=== PATIENT | female | born 1955 | race Hispanic/Latino ===

== ENCOUNTER → 2018-11-16 | Day surgery (SDC) | payer OTHER ==
[2018-11-15 09:38] LABS: BASOPHILS # (AUTO) 0.1 (0.0-0.1); EOSINOPHILS # (AUTO) 0.3 (0.0-0.4); EOSINOPHILS % 4.3 % (0.0-6.0); HEMATOCRIT 37.8 % (34.2-44.1); LYMPHOCYTES # (AUTO) 2.6 (1.0-3.2); LYMPHOCYTES % 38.7 % (18.0-39.1); MEAN CORPUSCULAR HGB CONC 31.7 g/dL (31-35); MEAN CORPUSCULAR VOLUME 88.3 fL (81-99); MONOCYTES # (AUTO) 0.5 (0.2-0.8); MONOCYTES % 7.3 % (4.4-11.3); NEUTROPHILS # (AUTO) 3.2 (2.1-6.9); NEUTROPHILS % 47.5 % (38.7-80.0); PLATELET COUNT 351 x10e3/uL (140-360); RED BLOOD COUNT 4.28 x10e6/uL (3.6-5.1); RED CELL DISTRIBUTION WIDTH 13.2 % (11.7-14.4)
[2018-11-15 09:56] LABS: ANION GAP 13.9 mmol/L (8-16); BLOOD UREA NITROGEN 11 mg/dL (7-26); BUN/CREATININE RATIO 12 (6-25); CARBON DIOXIDE 29 mmol/L (22-29); CHLORIDE 98 mmol/L (98-107); EST GLOMERULAR FILTRATION RATE > 60 ML/MIN (60-); GLUCOSE 90 mg/dL (74-118); POTASSIUM 3.9 mmol/L (3.5-5.1); SODIUM 137 mmol/L (136-145)
--- NOTE | 2018-11-15 10:32 | Diagnostic Imaging Report ---
EXAM: XR CHEST 2 VIEWS DATE: 11/15/2018 9:19 AM INDICATION: Preoperative, pain urologic procedure COMPARISON: None FINDINGS: Lines and Tubes: None Heart and Mediastinum: Heart is upper limits of normal. Mild aortic vascular calcifications. Lungs and Pleura: Mild biapical scarring. Ill-defined opacities in the lung bases. Circular density right lung base, nonspecific. Bones and Soft Tissues: No acute findings. IMPRESSION: 1. Ill-defined opacities mid and lower lungs, with no comparisons available. Atelectasis, edema, infectious process, or chronic lung changes could have this appearance. Circular density in the right lung base may represent confluence of vascular structures; however, other etiology possible. CT chest recommended. Signed by: Dr. Alexis Gonsales MD on 11/15/2018 10:29 AM
[~2018-11-16] MED LIST: ACIPHEX20 MG PO; ADVAIR 100-501 EACH INH; AMOXICILLIN250 MG PO; ARTHRITIS PAIN650 M3 PO; ARTIFICIAL TEAR15 ML OP; B12 INJ INJ; BELLADONNA/OPIUM 30 MG SUPP RC ONE; BENZONATATE100 MG PO; BOTULINUM TOXIN TYPE A 100 UNIT VIAL IM ONE; COMBIVENT14.7 GM INH; COPAXONE20 MG/KIT SC; CYANOCOBAL1000 MCG/M IM; DEXAMETHASONE SOD PHOS INJ 4 MG/ML VIAL ONE; DEXILANT60 MG; DICLOFENAC SOD2.5 ML; FENTANYL CITRATE/PF 100MCG/2 ML INJ ONE; FLECTOR1 EACH TP; FLUTICASONE PRO16 GM; GRALISE300 MG PO; GUAIFENESI100 MG/5 M PO; HYOSCYAMINE; IOPAMIDOL 610MG/1ML 300 MG/ML VIAL IV ONE; LEVOFLOXACIN 500MG/D5W 100ML 100 ML IV ONE; LEXAPRO5 MG PO; LIDOCAINE HCL 2% LOCAL INJ 5 ML SDV VIAL INJ ONE; LYRICA75 MG PO; MIDAZOLAM HCL 2 MG/2 ML VIAL ONE; MUCINEX600 MG PO; NORTRIPTYLINE H25 MG PO; ONDANSETRON HCL INJ 2MG/ML 2ML 2 MG/ML VIAL ONE; PROPOFOL IV EMULSION 10 MG/ML 20 ML VIAL ONE; RAPAFLO8 MG PO; RIVASTIGMINE1.5 MG TOP; SALINE NASAL SP45 ML; SEVOFLURANE INHAL SOLN 250 ML PEN BTL ONE; SUPHEDRINE PE10 MG PO; SYMBICORT 160-4.6 GM IH; VICODIN PO; VITAMIN D35000 UNIT PO; VOLTAREN100 GM TOP; Z FEOSOL PO; Z.0.LEVOTHYROXINE25 PO; Z.0.ONE-A-DAY WOME1; Z.0.RANITIDINE HCL30 PO; [UNRECOGNIZED DRUG - CODE] PO; [UNRECOGNIZED DRUG - OTHER] NS; [UNRECOGNIZED DRUG - OTHER] PO; [UNRECOGNIZED DRUG - OTHER] PO; lidocaine cream TOP
--- OUTSIDE RECORDS SUMMARY | 2018-11-16 05:29 | XMS REPORT | Clinical Summary ---
Author Author [facility]Min[facility] Hospital[facility] Address Unknown Phone Unavailable Care Team Providers Care Warehouse Analyst Name Role Phone Lester Gaitan PCP Unavailable Allergies Comments Active Allergy Reactions Severity Noted Date Cephalexin 08/11/2013 Cephalosporins Rash Low 07/15/2016 Darifenacin Hydrobromide 08/11/2013 Nitrofurantoin 08/11/2013 Macrocrystal MAKE HER HYPER Metoclopramide Hcl Other (See Medium 07/15/2016 Comments) Medications End Date Status Medication Sig Dispensed Refills Start Date Active escitalopram oxalate Take 5 mg by 0 (LEXAPRO) 5 MG tablet mouth daily. Active multivitamin per tablet Take 1 tablet 0 by mouth daily. Active betamethasone Apply 0 dipropionate (DIPROLENE) topically 2 0.05 % cream (two) times daily. Active albuterol-ipratropium Inhale 2 0 (COMBIVENT) 18-103 puffs by mcg/actuation inhaler mouth via inhaler every 6 (six) hours as needed for Wheezing. Active cyanocobalamin (VITAMIN Inject 1,000 0 B-12) 1,000 mcg/mL mcg injection intramuscular ly every 30 (thirty) days . Active fluticasone (VERAMYST) 2 sprays by 0 27.5 mcg/actuation nasal Nasal route spray daily. Active levothyroxine (SYNTHROID, Take 50 mcg 0 LEVOTHROID) 50 MCG tablet by mouth Every morning on an empty stomach. Active lidocaine (XYLOCAINE) 5 % Apply 0 ointment topically as needed. Active RABEprazole (ACIPHEX) 20 Take 20 mg by 0 mg EC tablet mouth daily. Active budesonide-formoterol Inhale 2 0 (SYMBICORT) 160-4.5 puffs by mcg/actuation inhaler mouth via inhaler 2 (two) times daily. Active dextran 70-hypromellose Place 1 drop 0 (ARTIFICIAL TEAR) into both ophthalmic solution eyes 2 (two) times daily. Active glatiramer (COPAXONE) 40 Inject 40 mg 0 mg/mL Syrg subcutaneousl y 3 (three) times a week. Active CALCIUM CARBONATE (TUMS Take by mouth 0 ORAL) as needed. Active cholecalciferol, vitamin Take 5,000 0 D3, (VITAMIN D3) 5,000 Units by unit Tab mouth daily. Active DICLOFENAC SODIUM Apply 0 (VOLTAREN TOP) topically. Active nortriptyline (PAMELOR) Take 10 mg by 0 10 MG capsule mouth nightly. Active fexofenadine HCl (MUCINEX Take by 0 ALLERGY ORAL) mouth. 10/06/2018 Discontinued silodosin (RAPAFLO) 8 mg Take by mouth 0 Cap daily. 10/06/2018 Discontinued sodium chloride 0.65% 1 spray by 0 (SODIUM CHLORIDE) 0.65 % Nasal route nasal spray as needed for Congestion. 10/06/2018 Discontinued dicyclomine (BENTYL) 10 Take 10 mg by 0 MG capsule mouth 3 (three) times daily. 10/06/2018 Discontinued ciprofloxacin HCl (CIPRO) Take 500 mg 0 500 MG tablet by mouth 2 (two) times daily. 10/06/2018 Discontinued pregabalin (LYRICA) 50 MG Take 50 mg by 0 capsule mouth 3 (three) times daily. Active Problems Not on file Encounters Care Team Description Date Type Specialty Yordan Perez 10/23/2018 Anesthesia Event Diana Zamudio MD UPPER ENDOSCOPY 10/23/2018 Surgery Diana Zamudio MD 10/23/2018 [facility] 10/06/2018 Hospital Pre-Admission Testing Encounter after 11/15/2017 Family History Medical History Relation Name Comments Cancer Father Cancer Mother Relation Name Status Comments Father Mother Social History Date Tobacco Use Types Packs/Day Years Used Never Smoker Smokeless Tobacco: Never Used Alcohol Use Drinks/Week oz/Week Comments No Sex Assigned at Date Recorded Not on file Industry Job Start Date Occupation Not on file Not on file Not on file Travel End Travel History Travel Start No recent travel history available. Last Filed Vital Signs Time Taken Vital Sign Reading 10/23/2018 10:35 AM [employer] Blood Pressure 116/68 10/23/2018 10:35 AM [employer] Pulse 72 10/23/2018 10:05 AM [employer] Temperature 36.6 C (97.8 F) 10/23/2018 10:35 AM [employer] Respiratory Rate 29 10/23/2018 10:35 AM [employer] Oxygen Saturation 94% - Inhaled Oxygen - Concentration 10/23/2018 7:27 AM [employer] Weight 82.1 kg (181 lb) 10/23/2018 7:27 AM [employer] Height 160 cm (5' 3") 10/23/2018 7:27 AM [employer] Body Mass Index 32.06 Plan of Treatment Not on file Procedures Comments Procedure Name Priority Date/Time Associated Diagnosis REPORT OF PROCEDURE - 10/23/2018 ENDOSCOPY URL 10:13 AM [employer] UPPER ENDOSCOPY 10/23/2018 Gastroesophageal reflux 8:00 AM [employer] disease, esophagitis presence not specified Other dysphagia Dyspepsia Achalasia after 11/15/2017 Results * REPORT OF PROCEDURE - ENDOSCOPY URL (10/23/2018 10:13 AM [employer]AL [employer]) Narrative Performed At after 11/15/2017 Insurance Payer Benefit Subscriber ID Type Phone Address Plan / Group AETNA - [employer] CARE AETNA HMO xxxxxxxxx HMO/POS POS QPOS
--- OUTSIDE RECORDS SUMMARY | 2018-11-16 05:29 | XMS REPORT | Summary of Care ---
Author Author [facility] [place] Organization [facility] [place] Address Unknown Phone Unavailable Encounter HQ Hayleer_jun(FIN) [id number] Date(s): 02/10/18 - 02/10/18 [facility] [place] [address] [place] [address] [phone] Encounter Diagnosis Multiple sclerosis (Final) - 02/15/18 Other amnesia (Final) - White matter disease, unspecified (Final) - Discharge Disposition: Home or Self Care Attending Physician: TuesdayRochelle MD Vital Signs No data available for this section Problem List Condition Effective Dates Status Health Status Informant Asthma(Confirmed) Active Bladder Resolved polyp(Confirmed)1 Bronchiectasis(Confi 2005 Active rmed) Dysphasia(Confirmed) Active 2 Fibromyalgia(Confirm Active ed) GERD - Active Gastro-esophageal reflux disease(Confirmed) Heel Active pain(Confirmed)3 Hypoglycemia(Confirm Active ed) MS - Multiple Resolved sclerosis(Confirmed) 4 Sleep Active apnea(Confirmed)5 Spondylosis(Confirme Active d) 1removed with cyto in 2Pt states she has had balloon dilation of esophagus for Achalasia 3Hx of heel spur right foot 4Diagnosed 2014, but states she has symptoms for years prior 5uses C PAP at home Allergies, Adverse Reactions, Alerts Substance Reaction Severity Status cephalosporins Active Reglan Active Medications No data available for this section Results No data available for this section Immunizations No data available for this section Procedures Procedure Date Related Diagnosis Body Site Status Knee replacement1 11/04/05 Completed Suspension of bladder 1998 Completed Hysterectomy1991 Completed Cystoscopy3 Completed Esophagogastroduodenoscopy4 Completed Tonsillectomy Completed 1Right knee 2Total hyst 3with removal of bladder polyps 4with achalasia balloon dilation Social History Social History Type Response Smoking Status Former smoker; Type: Cigarettes; Exposure to Tobacco Smoke None; Cigarette Smoking Last 365 Days No; Reg Smoking Cessation Counseling No; Started at age: 17.0; Stopped at age: 20; entered on: 02/25/16 Assessment and Plan No data available for this section
--- OUTSIDE RECORDS SUMMARY | 2018-11-16 05:29 | XMS REPORT | Summary of Care ---
Author Author [facility] [place] Organization [facility] [place] Address Unknown Phone Unavailable Encounter HQ Encntr_alias(FIN) [id number] Date(s): 08/06/15 - 08/06/15 [facility] [place] [address] [place], [place] [address] [place] [phone] Discharge Disposition: Home Attending Physician: TuesdayRochelle MD Vital Signs No data available for this section Problem List No data available for this section Allergies, Adverse Reactions, Alerts No data available for this section Medications No data available for this section Results No data available for this section Immunizations No data available for this section Procedures No data available for this section Social History No data available for this section Assessment and Plan No data available for this section
--- OUTSIDE RECORDS SUMMARY | 2018-11-16 05:29 | XMS REPORT | Summary of Care ---
Author Author [facility] Organization [facility] Address Unknown Phone Unavailable Encounter MIKE Lee(RODDY) [id number] Date(s): 08/27/15 - 08/27/15 [facility] [address] [place] [address]- Discharge Disposition: Home Attending Physician: TuesdayRochelle MD Referring Physician: TuesdayRochelle MD Vital Signs 1 2 3 Most recent to oldest [Reference Range]: 160.02 cm (08/27/15 8:27 AM) 160.02 cm (08/27/15 8:25 AM) 160.02 cm (08/27/15 8:24 AM) Height 1 2 3 Most recent to oldest [Reference Range]: 77.273 kg (08/27/15 8:27 AM) 77.273 kg (08/27/15 8:25 AM) 77.273 kg (08/27/15 8:24 AM) Weight 1 2 3 Most recent to oldest [Reference Range]: 30.18 m2 (08/27/15 8:27 AM) 30.18 m2 (08/27/15 8:25 AM) 30.18 m2 (08/27/15 8:24 AM) Body Mass Index Problem List No data available for this section Allergies, Adverse Reactions, Alerts No data available for this section Medications No data available for this section Results BODY FLUIDS Most recent to 1 oldest [Reference Range]: Glucose CSF [45-80 62 mg/dL mg/dL] (08/27/15 8:50 AM) Protein CSF [15-45 23 mg/dL mg/dL] (08/27/15 8:50 AM) Tube Num CSF 4 *NA* (08/27/15 8:50 AM) Color CSF Colorless [Colorless] (08/27/15 8:50 AM) Clarity CSF [Clear] Clear (08/27/15 8:50 AM) Supernat CSF Colorless [Colorless] (08/27/15 8:50 AM) RBC CSF [0-0 /mm3] 1 /mm3 *HI* (08/27/15 8:50 AM) WBC CSF [0-5 /mm3] 2 /mm3 (08/27/15 8:50 AM) IMMUNOLOGY Most recent to 1 oldest [Reference Range]: VDRL Scr CSF [Non Non Reactive Reactive] (08/27/15 8:50 AM) IgG Lvl CSF [2.0-4.0 1.3 mg/dL mg/dL] *LOW* (08/27/15 8:50 AM) IgG (CPE) [694-1618 1280 mg/dL mg/dL] (08/27/15 8:50 AM) Alb CSF (CPE) 9.9 mg/dL [14.0-25.0 mg/dL] *LOW* (08/27/15 8:50 AM) Alb (CPE) 4000.0 mg/dL [3400.0-5000.0 (08/27/15 8:50 AM) mg/dL] IgG Index [0.3-0.7 0.4 mg/dL mg/dL] (08/27/15 8:50 AM) Immunizations No data available for this section Procedures No data available for this section Social History No data available for this section Assessment and Plan No data available for this section
--- OUTSIDE RECORDS SUMMARY | 2018-11-16 05:29 | XMS REPORT | Summary of Care ---
Author Author [facility] Organization [facility] Address Unknown Phone Unavailable Encounter MIKE Lee(RODDY) [id number] Date(s): 02/25/16 - 02/26/16 [facility] [address] [place] [address]- Discharge Disposition: Home Attending Physician: Physician, Non Associated MD Referring Physician: Sg Jeffries MD Vital Signs Most recent to 1 oldest [Reference Range]: Height 160.02 cm (02/25/16 10:15 AM) Respiratory Rate 16 BRMIN [14-20 BRMIN] (02/25/16 10:19 AM) Weight 77.273 kg (02/25/16 10:15 AM) Body Mass Index 30.18 m2 (02/25/16 10:15 AM) Problem List Condition Effective Dates Status Health Status Informant Asthma(Confirmed) Active Bladder Resolved polyp(Confirmed)1 Bronchiectasis(Confi 2004 Active rmed) Dysphasia(Confirmed) Active 2 Fibromyalgia(Confirm Active [...] Severity Status cephalosporins Active Reglan Active Medications betamethasone TOP, ONCE, 0 Refill(s) Start Date: 02/25/16 Status: Ordered Combivent Respimat CFC free 100 mcg-20 mcg/inh inhalation aerosol 1 puff, INHALATION, PRN, 0 Refill(s) Start Date: 02/25/16 Status: Ordered Copaxone 40 mg/mL subcutaneous solution SUB-Q, Q-M-[id number], 0 Refill(s) Start Date: 02/25/16 Status: Ordered gabapentin 100 mg oral capsule 200 mg=2 cap, PO, Bedtime, 0 Refill(s) Start Date: 02/25/16 Status: Ordered Levothroid 25 mcg (0.025 mg) oral tablet 25 microgram=1 tab, PO, Daily, 0 Refill(s) Start Date: 02/25/16 Status: Ordered Multiple Vitamins oral tablet 1 tab, PO, Daily, 0 Refill(s) Start Date: 02/25/16 Status: Ordered RABEprazole 20 mg oral enteric coated tablet 20 mg=1 tab, PO, Daily, # 30 tab, 1 Refill(s) Start Date: 02/25/16 Stop Date: 03/26/16 Status: Ordered Symbicort 160/4.5 inhalation aerosol with adapter 2 puff, INHALATION, Daily, 0 Refill(s) Start Date: 02/25/16 Status: Ordered tamsulosin 0.4 mg oral capsule 0.4 mg=1 cap, PO, Daily, # 30 cap, 0 Refill(s) Start Date: 02/25/16 Status: Ordered Unknown Home Medication Refill(s) 0 Start Date: 02/25/16 Status: Ordered Vitamin B Complex injectable solution 2 mm, 0 Refill(s) Start Date: 02/25/16 Status: Ordered Vitamin D3 5000 intl units oral tablet 5,000 IntlUnit=1 tab, PO, Daily, 0 Refill(s) Start Date: 02/25/16 Status: Ordered Results No data available for this section Immunizations No data available for this section Procedures Procedure Date Related Diagnosis Body Site Knee replacement1 11/04/05 Suspension of bladder 1998 Hysterectomy2 1991 Cystoscopy3 Esophagogastroduodenoscopy4 Tonsillectomy 1Right knee 2Total hyst 3with removal of bladder polyps 4with achalasia balloon dilation Social History Social History Type Response Smoking Status Former smoker; Type: Cigarettes; Started at age: 17.0; Stopped at age: 20; Exposure to Tobacco Smoke None; Cigarette Smoking Last 365 Days No; Reg Smoking Cessation Counseling No Assessment and Plan No data available for this section
--- OUTSIDE RECORDS SUMMARY | 2018-11-16 05:29 | XMS REPORT ---
Author Author [facility] Address Unknown Phone Unavailable Care Team Providers Care Recreation Therapist Name Role Phone POLLY BAIRD Unavailable Unavailable Payers Payer Name Policy Type Policy Number Effective Date Expiration Date Problems This patient has no known problems. Allergies, Adverse Reactions, Alerts Allergy Name Allergy Type Status Severity Reaction(s) Onset Date Inactive Date Treating Clinician Comments Cephalosporins DA Active U 2016-02-24 00:00:00 metoclopramide HCl DA Active U 2013-08-11 00:00:00 Nitrofurantoin Macrocrystal DA Active U 2013-08-11 00:00:00 Darifenacin Hydrobromide DA Active U 2013-08-11 00:00:00 cephalexin DA Active MO 2013-08-11 00:00:00 nitrofurantoin DA Active U 2013-08-11 00:00:00 Medications This patient has no known medications. Results Test Description Test Time Test Comments Text Results Atomic Results Result Comments CHEST 2 VIEWS 2018-11-15 10:27:00 [place] [address] Patient Name: WEST MEJIA MR #: [id number] : 1955 Age/Sex: 63/F Req #: [id number] Adm Physician: Ordered by: POLLY BAIRD MD Report #: [id number] Location: OR Room/Bed: Procedure: [id number] DX/CHEST 2 VIEWS Exam Date: Exam Time: REPORT STATUS: Signed EXAM: XR CHEST 2 VIEWS DATE: 11/15/2018 9:19 AM INDICATION: Preop erative, pain urologic procedure COMPARISON: None FINDINGS: Lines and Tubes: None Heart and Mediastinum: Heart is upper limits of normal. Mild aortic vascular calcifications. Lungs and Pleura: Mild biapical scarring. Ill-defined opacities in the lung bases. Circular density right lung base, nonspecific. Bones and Soft Tissues: No acute findings. IMPRESSION: 1. Ill-defined opacities mid and lower lungs, with no comparisons available. Atelectasis, edema, infectious process, or chronic lung changes could have this appearance. Circular density in the right lung base may represent confluence of vascular structures; however, other etiology possible. CT chest recommended. Signed by: Dr. Alexis Gonsales MD on 11/15/2018 10:29 AM Dictated By: ALEXIS GONSALES MD [id number] Transcribed By: ALAN on 11/15/18 1029 COPY TO: POLLY BAIRD MD
--- OUTSIDE RECORDS SUMMARY | 2018-11-16 05:29 | XMS REPORT | Summary of Care ---
Author Author [facility] Organization [facility] Address Unknown Phone Unavailable Encounter HQ Gen_jun(FIN) [id number] Date(s): 08/26/16 - 08/26/16 [facility] [address] [place] [address]- Discharge Disposition: Home or Self Care Attending Physician: Dolly Yee Referring Physician: Dolly Yee Vital Signs No data available for this [...] No data available for this section Results CHEM PANEL Most recent to 1 oldest [Reference Range]: eGFR 71 mL/min/1.73m2 1 *NA* (08/26/16 8:56 AM) POC Creatinine 0.9 mg/dL [0.5-1.4 mg/dL] (08/26/16 8:56 AM) 1Result Comment: The eGFR is calculated using the CKD-EPI formula. In most young, healthy individuals the eGFR will be >90 mL/min/1.73m2. The eGFR declines with age. An eGFR of 60-89 may be normal in some populations, particularly the elderly, for whom the CKD-EPI formula has not been extensively validated. Use of the eGFR is not recommended in the following populations: Individuals with unstable creatinine concentrations, including patients and those with serious co-morbid conditions. Patients with extremes in muscle mass or diet. The data above are obtained from the National Kidney Disease Education Program ( NKDEP) which additionally recommends that when the eGFR is used in patients with extremes of body mass index for purposes of drug dosing, the eGFR should be mul tiplied by the estimated BMI. Immunizations No data available for this section [...]
[2018-11-16 08:20] VITALS: BP 109/73
--- NOTE | 2019-01-09 03:58 | Operative Report ---
DATE OF PROCEDURE: November 16, 2018 PREOPERATIVE DIAGNOSES 1. Refractory urge incontinence. 2. Urinary tract infections. POSTOPERATIVE DIAGNOSES 1. Refractory urge incontinence. 2. Urinary tract infections. 3. Grade 2 rectocele. 4. Atrophic (senile) vaginitis. OPERATIONS PERFORMED 1. Cystourethroscopy with bilateral ureteral catheterization and retrograde ureteropyelography (separate procedure performed for the urinary tract infections). 2. Interpretation of retrograde ureteropyelography. 3. Supervision of fluoroscopy. No radiologist present. 4. Cystourethroscopy with intravesical injection of Botox (separate procedure performed for diagnosis of the refractory urge incontinence). 5. Pelvic examination under anesthesia. ANESTHESIA: General. COMPLICATIONS: None. CLINICAL SUMMARY: Francoise Miller is a 63-year-old woman with the above preoperative diagnoses. She is brought for the above procedures. She has a history of urinary retention. She was doing clean intermittent catheterizations. She had a previous bladder suspension performed by the [facility] which is no longer in existence. The patient was brought for the above procedures. She is aware of the risks of bleeding, infection, injury to adjacent structures, need for additional procedures. She also understands that the Botox is temporary in nature and additional treatments will be warranted once it wears off. She understood all these risks and elected to proceed. OPERATIVE PROCEDURE IN DETAIL: Informed consent was verified. Francoise Miller was properly identified, taken to the operating room, placed on the cystoscopy table in supine position. Anesthesia was uneventfully begun. The patient was then carefully and gently re-positioned in dorsal lithotomy position with all pressure points well padded. Her genitalia were prepared and draped in usual sterile fashion. The 22.5-Hungarian cystoscope sheath with the obturator in place was atraumatically inserted in the patient's urethra and the bladder was drained. Panendoscopy of the urinary bladder revealed grade 1 to 2 trabeculations, but no tumors, no stones, and no diverticula. Normally positioned and configured ureteral orifices were identified. A ureteral catheter was used to cannulate each ureter and retrograde ureteropyelograms were performed. Interpretation of retrograde ureteropyelography: Contrast was instilled in retrograde fashion bilaterally. There were no tumors, no stones, and no diverticula. Unobstructed drainage was observed bilaterally fluoroscopically. Botox was then dissolved in sterile saline. We then injected it in small doses throughout in an even distribution throughout the bladder. The bladder was drained. The cystoscope was withdrawn. Pelvic examination under anesthesia revealed a grade 2 rectocele with atrophic (senile) vaginitis. No obvious suspicious mucosal lesions were identified. There were no abnormal palpable pelvic masses present. Patient was then uneventfully reversed from anesthesia and taken to recovery room in stable condition. There were no complications to the procedure. She tolerated the procedure well. Plans will be to follow the patient up in the office and of course on a long-term basis. Job#: [id number] CF cc:DAKOTA ERICKSON MD
== END | disposition home or self-care (01) ==
LOC: OR 05:26
PROVIDERS: ATTEND Urology
DX: N39.46 Mixed incontinence (principal); N39.0 Urinary tract infection, site not specified; N81.6 Rectocele; N95.2 Postmenopausal atrophic vaginitis; N32.89 Other specified disorders of bladder; N31.2 Flaccid neuropathic bladder, not elsewhere classified; N31.9 Neuromuscular dysfunction of bladder, unspecified; N81.89 Other female genital prolapse; K42.9 Umbilical hernia without obstruction or gangrene; N36.41 Hypermobility of urethra; G35 Multiple sclerosis; G47.33 Obstructive sleep apnea (adult) (pediatric); K21.9 Gastro-esophageal reflux disease without esophagitis; K76.0 Fatty (change of) liver, not elsewhere classified; K58.9 Irritable bowel syndrome, unspecified; J44.9 Chronic obstructive pulmonary disease, unspecified; Z88.1 Allergy status to other antibiotic agents; Z88.8 Allergy status to other drugs, medicaments and biological substances; Z01.810 Encounter for preprocedural cardiovascular examination; Z01.812 Encounter for preprocedural laboratory examination; Z01.818 Encounter for other preprocedural examination; Z68.30 Body mass index [BMI] 30.0-30.9, adult
CPT/HCPCS: 36415; 52005; 52287; 71046; 74420; 80048; 85025; 93005; C1758; J0587; J1100; J1956; J2001; J2250; J2405; J2704; Q9967

== ENCOUNTER → 2019-03-15 | Outpatient (CLI) | payer OTHER ==
[~2019-03-15] MED LIST changes: -BELLADONNA/OPIUM 30 MG SUPP RC ONE; -BOTULINUM TOXIN TYPE A 100 UNIT VIAL IM ONE; -DEXAMETHASONE SOD PHOS INJ 4 MG/ML VIAL ONE; -FENTANYL CITRATE/PF 100MCG/2 ML INJ ONE; -IOPAMIDOL 610MG/1ML 300 MG/ML VIAL IV ONE; -LEVOFLOXACIN 500MG/D5W 100ML 100 ML IV ONE; -LIDOCAINE HCL 2% LOCAL INJ 5 ML SDV VIAL INJ ONE; -MIDAZOLAM HCL 2 MG/2 ML VIAL ONE; -ONDANSETRON HCL INJ 2MG/ML 2ML 2 MG/ML VIAL ONE; -PROPOFOL IV EMULSION 10 MG/ML 20 ML VIAL ONE; -SEVOFLURANE INHAL SOLN 250 ML PEN BTL ONE
--- NOTE | 2019-03-15 11:32 | Diagnostic Imaging Report ---
EXAMINATION: CHEST 2 VIEWS INDICATION: Bronchitis. COMPARISON: Chest radiograph 11/15/2018. FINDINGS: TUBES and LINES: None. LUNGS: Lungs are moderately inflated. There are persistent opacities in the bilateral mid and lower lung zones, similar to chest radiograph on 11/15/2018. No evidence of pulmonary edema. PLEURA: No pleural effusion or pneumothorax. HEART AND MEDIASTINUM: The cardiomediastinal silhouette is unremarkable. BONES AND SOFT TISSUES: No acute osseous abnormality. UPPER ABDOMEN: No free air under the diaphragm. IMPRESSION: Persistent indeterminant bilateral mid and lower lung zone opacities compared to chest radiograph of 11/15/2018. Suggest chest CT for further evaluation. Signed by: Dr. Sharon Nunez MD on 03/15/2019 11:29 AM
--- NOTE | 2019-03-15 11:37 | Diagnostic Imaging Report ---
Exam: Right foot radiographs-4 views Clinical History: Hindfoot pain. Comparison: None. Findings: No evidence of acute fracture or malalignment. Lisfranc alignment is maintained. There is soft tissue edema in the hindfoot/ankle. There are moderate degenerative changes in the intertarsal and tarsometatarsal joints. There is a plantar calcaneal spur. Impression: Soft tissue edema in the hindfoot/ankle. No evidence of acute fracture or malalignment. Dedicated ankle radiographs may be obtained if clinically indicated. Moderate degenerative changes in the hindfoot as above. Plantar calcaneal spur. Signed by: Dr. Sharon Nunez MD on 03/15/2019 11:33 AM
== END ==
LOC: RAD 10:04
PROVIDERS: ATTEND Internal Medicine
DX: Z01.818 Encounter for other preprocedural examination (principal); J40 Bronchitis, not specified as acute or chronic; M79.671 Pain in right foot
CPT/HCPCS: 71046; 93005

== ENCOUNTER 2019-03-22 13:53 | Outpatient (RCR) | payer OTHER | END 2019-03-27 | LOC: PT 13:53 | PROVIDERS: ATTEND Specialist | DX: S82.54XD Nondisplaced fracture of medial malleolus of right tibia, subsequent encounter for closed fracture with routine healing (principal); Z96.651 Presence of right artificial knee joint; M17.11 Unilateral primary osteoarthritis, right knee; M17.12 Unilateral primary osteoarthritis, left knee; M62.81 Muscle weakness (generalized) ==

== ENCOUNTER 2019-03-29 16:01 | Outpatient (RCR) | payer OTHER ==
[2019-03-30] MEDS ORDERED: Guaifenesin (09:09)
[2019-03-30] MEDS ORDERED: ESCITALOPRAM OX20 MG PO (09:09)
[2019-03-30] MEDS ORDERED: MURO-12815 ML OU (09:17)
[2019-03-30] MEDS ORDERED: THERA TEARS1 EAC1 OU (09:17)
[2019-03-30] MEDS ORDERED: ALLERGY EYE DROPS OU (09:17)
[2019-03-30] MEDS ORDERED: Rivastigmine TD (09:17)
[2019-03-30] MEDS ORDERED: NORTRIPTYLINE H10 MG (09:17)
[2019-04-02] MEDS ORDERED: DICLOFENAC CREAM TOP (06:24)
[2019-04-02] MEDS ORDERED: LIDOCAINE CREAM TOP (06:24)
[2019-04-02] MEDS ORDERED: BETAMETHASONE D15 GM TOP (06:24)
[2019-04-03] MEDS ORDERED: LEXAPRO10 MG PO (00:42)
[2019-04-03] MEDS ORDERED: ASPIRIN ENTERI325 MG PO (12:59)
[2019-04-03] MEDS ORDERED: LOVENOX60 MG/0.6 SC (13:07)
[2019-04-03] MEDS ORDERED: NORCO 7.5-3251 EACH PO (13:08)
== END 2019-04-27 ==
LOC: PT 16:01
PROVIDERS: ATTEND Specialist
DX: Z96.651 Presence of right artificial knee joint (principal); S82.54XD Nondisplaced fracture of medial malleolus of right tibia, subsequent encounter for closed fracture with routine healing; M17.12 Unilateral primary osteoarthritis, left knee; M62.81 Muscle weakness (generalized)
CPT/HCPCS: 97139

== ENCOUNTER 2019-04-02 05:27 | Observation (INO) | payer OTHER ==
[2019-03-30 09:47] LABS: BASOPHILS # (AUTO) 0.1 (0.0-0.1); EOSINOPHILS # (AUTO) 0.3 (0.0-0.4); EOSINOPHILS % 4.5 % (0.0-6.0); HEMATOCRIT 36.7 % (34.2-44.1); HEMOGLOBIN 11.7 g/dL (12.0-16.0); LYMPHOCYTES # (AUTO) 2.1 (1.0-3.2); LYMPHOCYTES % 37.1 % (18.0-39.1); MEAN CORPUSCULAR HEMOGLOBIN 27.8 pg (28-32); MEAN CORPUSCULAR HGB CONC 31.9 g/dL (31-35); MEAN CORPUSCULAR VOLUME 87.2 fL (81-99); MONOCYTES # (AUTO) 0.4 (0.2-0.8); MONOCYTES % 7.7 % (4.4-11.3); NEUTROPHILS # (AUTO) 2.8 (2.1-6.9); NEUTROPHILS % 49.2 % (38.7-80.0); PLATELET COUNT 345 x10e3/uL (140-360); RED BLOOD COUNT 4.21 x10e6/uL (3.6-5.1); RED CELL DISTRIBUTION WIDTH 13.2 % (11.7-14.4)
[2019-03-30 10:00] LABS: INR 0.88; PROTHROMBIN TIME 12.4 seconds (11.9-14.5)
[2019-03-30 10:01] LABS: PARTIAL THROMBOPLASTIN TIME 25.8 seconds (23.8-35.5)
[2019-03-30 10:08] LABS: ALANINE AMINOTRANSFERASE 33 IU/L (0-55); ALBUMIN 3.6 g/dL (3.5-5.0); ALKALINE PHOSPHATASE 89 IU/L (40-150); ANION GAP 10.7 mmol/L (8-16); BLOOD UREA NITROGEN 11 mg/dL (7-26); BUN/CREATININE RATIO 14 (6-25); CALCIUM 9.1 mg/dL (8.4-10.2); CARBON DIOXIDE 29 mmol/L (22-29); CHLORIDE 101 mmol/L (98-107); CREATININE, SERUM 0.77 mg/dL (0.57-1.11); EST GLOMERULAR FILTRATION RATE > 60 ML/MIN (60-); GLUCOSE 86 mg/dL (74-118); POTASSIUM 3.7 mmol/L (3.5-5.1); SODIUM 137 mmol/L (136-145)
[~2019-04-02] VITALS: Ht 160 cm; Wt 83.5 kg
[~2019-04-02 05:27] MED LIST changes: +ALLERGY EYE DROPS OU; +ESCITALOPRAM OX20 MG PO; +Guaifenesin; +MURO-12815 ML OU; +NORTRIPTYLINE H10 MG; +Rivastigmine TD; +THERA TEARS1 EAC1 OU
--- OUTSIDE RECORDS SUMMARY | 2019-04-02 05:31 | XMS REPORT ---
Author Author [facility] Address Unknown Phone Unavailable Care Team Providers Care Atmospheric Chemist Name Role Phone HALIMA GEORGE Unavailable Unavailable HAMPEL, POLLY Unavailable Unavailable Payers Payer Name Policy Type Policy Number Effective Date Expiration Date Problems This patient has no known problems. Allergies, Adverse Reactions, Alerts Allergy Name Allergy Type Status Severity Reaction(s) Onset Date Inactive Date Treating Clinician Comments metoclopramide HCl DA Active U 2019-03-04 00:00:00 Nitrofurantoin Macrocrystal DA Active U 2019-03-04 00:00:00 Darifenacin Hydrobromide DA Active U 2019-03-04 00:00:00 Cephalosporins DA Active U 2019-03-04 00:00:00 cephalexin DA Active MO 2019-03-04 00:00:00 nitrofurantoin DA Active U 2019-03-04 00:00:00 Cephalosporins DA Active U 2016-02-24 00:00:00 metoclopramide HCl DA Active U 2013-08-11 00:00:00 Nitrofurantoin Macrocrystal DA Active U 2013-08-11 00:00:00 Darifenacin Hydrobromide DA Active U 2013-08-11 00:00:00 cephalexin DA Active MO 2013-08-11 00:00:00 nitrofurantoin DA Active U 2013-08-11 00:00:00 Medications This patient has no known medications. Results Test Description Test Time Test Comments Text Results Atomic Results Result Comments FOOT RIGHT COMPLETE 2019-03-15 11:29:00 [facility] [address] [place] [id number] Patient Name: WEST MEJIA MR #: [id number] : 1955 Age/Sex: 63/F Req #: [id number] Adm Physician: Ordered by: HALIMA GEORGE MD Report #: [id number] Location: [facility] Room/Bed: Procedure: [id number] DX/FOOT RIGHT COMPLETE Exam Date: 03/15/19 Exam Time: 1014 REPORT STATUS: Signed Exam: Right foot radiographs-4 views Clinical History: Hindfoot pain. Comparison: None. Findings: No evidence of acute fracture or malalignment. Lisfranc alignment is maintained. There is soft tissue edema in the hindfoot/ankle. There are moderate degenerative changes in the intertarsal and tarsometatarsal joints. There is a plantar calcaneal spur. Impression: Soft tissue edema in the hindfoot/ankle. No evidence of acute fracture or malalignment. Dedicated ankle radiographs may be obtained if clinically indicated. Moderate degenerative changes in the hindfoot as above. Plantar calcaneal spur. Signed by: Dr. Mireya Burks MD on 03/15/2019 11:33 AM Dictated By: MIREYA BURKS MD 1133 Transcribed By: ALAN on 03/15/19 1133 COPY TO: HALIMA GEORGE MD CHEST 2 VIEWS 2019-03-15 11:27:[address] [address] Patient Name: WEST MEJIA MR #: [id number] : 1955 Age/Sex: 63/F Req #: [id number] Adm Physician: Ordered by: HALIMA GEORGE MD Report #: [id number] Location: [facility] Room/Bed: Procedure: [id number] DX/CHEST 2 VIEWS Exam Date: 03/15/19 Exam Time: 1020 REPORT STATUS: Signed EXAMINATION: CHEST 2 VIEWS INDICATION: Bronchitis. COMPARISON: Chest radiograph 11/15/2018. FINDINGS: TUBES and LINES: None. LUNGS: Lungs are moderately inflated. There are persistent opacities in the bilateral mid and lower lung zones, similar to chest radiograph on 11/15/2018. No evidence of pulmonary edema. PLEURA: No pleural effusion or pneumothorax. HEART AND MEDIASTINUM: The cardiomediastinal silhouette is unremarkable. BONES AND SOFT TISSUES: No acute osseous abnormality. UPPER ABDOMEN: No free air under the diaphragm. IMPRESSION: Persistent indeterminant bilateral mid and lower lung zone opacities compared to chest radiograph of 11/15/2018. Suggest chest CT for further evaluation. Signed by: Dr. Mireya Burks MD on 03/15/2019 11:29 AM Dictated By: MIREYA BURKS MD 28 Transcribed By: ALAN on 03/15/19 112 COPY TO: HALIMA GEORGE MD - XR ANKLE 3 + V RT 2018-12-24 22:33:00 FAX: Chinedu Mitchell DO [place]: B St: [facility] 1955 Age/S: 63/F [address] Unit #: [id number] Loc: [place] [address] Phys: Chinedu Mitchell DO Acct: [id number] Dis Date: Status: REG ER PHONE #: [phone] Exam Date: 12/24/20182219 FAX #: [phone] Reason: fall/pain EXAMS: CPT CODE: [id number] XR ANKLE 3 + V RT [id number] CLINICAL HISTORY: fall/pain TECHNIQUE: AP, oblique, and lateral views of the right ankle COMPARISON: None FINDINGS: Linear opacity adjacent to the medial malleolus on the AP view likely represents an avulsion injury. Ankle mortise is intact. There is a small joint effusion. There is also stranding within the Kager's triangle. The soft tissues around the ankle are swollen. IMPRESSION: Avulsion injury involving the medial malleolus of the right ank le with associated soft tissue swelling and joint effusion. No malalignment however. at 2233 Reported and signed by: Ulises Baxter MD CC: Chinedu Mitchell DO Technologist: MICHEAL FREITAS(R) Trnscrd Date/Time/By: 12/24/2018 (3649) : By: [email or web address] Orig Print D/T: S: 12/24/2018 (4603) PAGE 1 Signed Report CHEST 2 VIEWS 2018-11-15 10:27:00 [place] [address] Patient Name: WEST MEJIA MR #: [id number] : 1955 Age/Sex: 63/F Req #: [id number] Adm Physician: Ordered by: POLLY BAIRD MD Report #: [id number] Location: OR Room/Bed: Procedure: [id number] DX/CHEST 2 VIEWS Exam Date: Exam Time: [...]
--- OUTSIDE RECORDS SUMMARY | 2019-04-02 05:31 | XMS REPORT | Clinical Summary ---
Author Author ION [employer] [facility] Address Unknown Phone Unavailable Care Team Providers Care Pleater Name Role Phone Lester Gaitan PCP Unavailable [...] Diana Zamudio MD 10/23/2018 [facility] Phone 10/06/2018 Hospital Pre-Admission Testing Encounter after 04/01/2018 Family History Medical History Relation Name Comments [...] Taken Vital Sign Reading 10/23/2018 10:35 AM FIRMWARE ENGINEER Blood Pressure 116/68 10/23/2018 10:35 AM FIRMWARE ENGINEER Pulse 72 10/23/2018 10:05 AM FIRMWARE ENGINEER Temperature 36.6 C (97.8 F) 10/23/2018 10:35 AM FIRMWARE ENGINEER Respiratory Rate 29 10/23/2018 10:35 AM FIRMWARE ENGINEER Oxygen Saturation 94% - Inhaled Oxygen - Concentration 10/23/2018 7:27 AM FIRMWARE ENGINEER Weight 82.1 kg (181 lb) 10/23/2018 7:27 AM FIRMWARE ENGINEER Height 160 cm (5' 3") 10/23/2018 7:27 AM FIRMWARE ENGINEER Body Mass Index 32.06 Plan of Treatment Not on file Procedures Comments Procedure Name Priority Date/Time Associated Diagnosis REPORT OF PROCEDURE - 10/23/2018 ENDOSCOPY URL 10:13 AM FIRMWARE ENGINEER UPPER ENDOSCOPY 10/23/2018 Gastroesophageal reflux 8:00 AM FIRMWARE ENGINEER disease, esophagitis presence not specified Other dysphagia Dyspepsia Achalasia after 04/01/2018 Results * REPORT OF PROCEDURE - ENDOSCOPY URL (10/23/2018 10:13 AM FIRMWARE ENGINEER) Narrative Performed At after 04/01/2018 Insurance Payer Benefit Subscriber ID Type Phone Address Plan / Group AETNA - [employer] C[employer] AETNA HMO xxxxxxxxx HMO/POS POS QPOS
[2019-04-02] MEDS ORDERED: CELECOXIB 200 MG CAP ONE (05:59)
[2019-04-02] MEDS ORDERED: DEXAMETHASONE SOD PHOS 10 MG/1 ML VIAL ONE (05:59)
[2019-04-02] MEDS ORDERED: GABAPENTIN 300 MG CAP ONE (05:59)
[2019-04-02] MEDS ORDERED: VANCOMYCIN 1GM/NS 250 ML 250 ML ONE (06:00)
[2019-04-02] MEDS ORDERED: TRANEXAMIC ACID 1,000 MG/10 ML ML ONE (06:16)
[2019-04-02] MEDS ORDERED: VANCOMYCIN HCL 1,000 MG ONE (06:16)
[2019-04-02] MEDS ORDERED: BACITRACIN 50,000 UNIT VIAL ONE (06:17)
[2019-04-02] MEDS ORDERED: DICLOFENAC CREAM TOP (06:24)
[2019-04-02] MEDS ORDERED: LIDOCAINE CREAM TOP (06:24)
[2019-04-02] MEDS ORDERED: BETAMETHASONE D15 GM TOP (06:24)
[2019-04-02] MEDS ORDERED: ROPIVACAINE 246.25 MG, EPINEPHRINE HCL 1:1000 1ML 0.5 MG, CLONIDINE HCL 0.08 MG, KETORO... INJ ONE ×5 (06:30)
[2019-04-02] MEDS ORDERED: BUPIVACAINE 7.5MG/ML /DEXTROSE 82.5MG/ML 2 ML AMP INJ ONE (07:16)
[2019-04-02] MEDS ORDERED: HYDROCODONE/APAP 5MG-325MG TAB PO PRN (09:00)
[2019-04-02] MEDS ORDERED: CELECOXIB 100 MG CAP PO SCH (09:00)
[2019-04-02] MEDS ORDERED: PROMETHAZINE HCL (IM) 25 MG/ML VIAL IM PRN (09:00)
[2019-04-02] MEDS ORDERED: KETOROLAC TROMETHAMINE 30 MG/ML VIAL IV PRN (09:00)
[2019-04-02] MEDS ORDERED: DIPHENHYDRAMINE HCL INJ 50 MG/ML VIAL IM/IV PRN (09:00)
[2019-04-02] MEDS ORDERED: DOCUSATE SODIUM 100 MG CAP PO PRN (09:00)
[2019-04-02] MEDS ORDERED: ACETAMINOPHEN 650 MG SUPP PR PRN (09:00)
[2019-04-02] MEDS ORDERED: ASPIRIN 325 MG TAB PO SCH (09:00)
--- OUTSIDE RECORDS SUMMARY | 2019-04-02 09:18 | XMS REPORT | Clinical Summary ---
Author Author ION [facility]tvWest [facility] CenterRidem[facility] Address Unknown Phone Unavailable Care Team Providers Care [employer] Education Teacher Name Role Phone Lester Gaitan PCP Unavailable [...] Diana Zamudio MD 10/23/2018 Hospital Encounter Resource, [facility] Phone 10/06/2018 Hospital Pre-Admission Testing Encounter [...] Taken Vital Sign Reading 10/23/2018 10:35 AM FUNERAL CAR DRIVER Blood Pressure 116/68 10/23/2018 10:35 AM FUNERAL CAR DRIVER Pulse 72 10/23/2018 10:05 AM FUNERAL CAR DRIVER Temperature 36.6 C (97.8 F) 10/23/2018 10:35 AM FUNERAL CAR DRIVER Respiratory Rate 29 10/23/2018 10:35 AM FUNERAL CAR DRIVER Oxygen Saturation 94% - Inhaled Oxygen - Concentration 10/23/2018 7:27 AM FUNERAL CAR DRIVER Weight 82.1 kg (181 lb) 10/23/2018 7:27 AM FUNERAL CAR DRIVER Height 160 cm (5' 3") 10/23/2018 7:27 AM FUNERAL CAR DRIVER Body Mass Index 32.06 Plan of Treatment Not on file Procedures Comments Procedure Name Priority Date/Time Associated Diagnosis REPORT OF PROCEDURE - 10/23/2018 ENDOSCOPY URL 10:13 AM FUNERAL CAR DRIVER UPPER ENDOSCOPY 10/23/2018 Gastroesophageal reflux 8:00 AM FUNERAL CAR DRIVER disease, esophagitis presence not specified Other dysphagia Dyspepsia Achalasia after 04/01/2018 Results * REPORT OF PROCEDURE - ENDOSCOPY URL (10/23/2018 10:13 AM FUNERAL CAR DRIVER) Narrative Performed At after 04/01/2018 Insurance Payer Benefit Subscriber ID Type Phone Address Plan / Group AETNA - MGD CARE AETNA HMO xxxxxxxxx HMO/POS POS QPOS
--- NOTE | 2019-04-02 09:53 | Diagnostic Imaging Report ---
Exam: Left knee 2 views History: Postop Comparison: None. Findings: See impression Impression: Status post total left knee arthroplasty with intact surgical hardware. Expected subcutaneous gas and skin marcia. No periprosthetic displaced fracture. Signed by: Dr. Dann Ahn M.D. on 04/02/2019 9:50 AM
--- NOTE | 2019-04-02 10:16 | NUR ---
received to rm 104 [id number] no distress noted, updated on poc voiced understanding, dsg to left leg c/d/i, respiratory even/unlabored, no other co voiced call light in reach will continue ot monitor
[2019-04-02 10:23] VITALS: BP 102/59
[2019-04-02 10:27] VITALS: BP 102/59
[2019-04-02] MEDS: ASPIRIN 325 MG TAB EC PO SCH ×2 (11:13→17:20)
[2019-04-02] MEDS: ONDANSETRON HCL INJ 2MG/ML 2ML 2 MG/ML VIAL IV PRN ×2 (12:00→21:21)
[2019-04-02] MEDS ORDERED: MIDAZOLAM HCL 2 MG/2 ML VIAL ONE (12:17)
[2019-04-02] MEDS ORDERED: FENTANYL CITRATE/PF 100MCG/2 ML INJ ONE (12:17)
[2019-04-02] MEDS: ACETAMINOPHEN 1000 MG/100 ML IV SCH ×2 (12:19→17:20)
[2019-04-02] MEDS: SODIUM CHLORIDE 0.9% 1000ML 1,000 ML IV SCH ×2 (12:20→21:21)
--- NOTE | 2019-04-02 13:23 | NUR ---
PATIENT DME AND HOME HEALTH COMPANIES PRE-ARRANGED BY DR. REYNAGA'S OFFICE. PATIENT WITH HOME HEALTH AND DME CONTACT INFORMATION. PATIENT AWARE TO CALL CM IF ANY PROBLEMS OCCUR WITHIN 3 DAYS POST- DISCHARGE. HOME HEALTH EXPLAINED IN DEPTH WITH SERVICES PROVIDED. PATIENT VERBALLY UNDERSTOOD. THE FOLLOWING HOME HEALTH AND DME COMPANY VERIFIED PATIENT IS ON SERVICE WITH THEM: DME [employer]US [employer]UTION : (WALKER WITH WHEELS, CPM, 3-IN-1 COMMODE) (P) [phone] (F) [phone] CM CALLED AND SPOKE TO DANA AT [employer]. EQUIPMENT HAS BEEN DELIVERED AND WALKER IS AT BEDSIDE READY FOR DISCHARGE TOMORROW. CPM TO BE DELIVERED TO PATIENT HOME DAY AFTER DISCHARGE. PATIENT AWARE. HOME CARE PROVIDERS (P) [phone] (F) [phone] CM CALLED AND SPOKE TO RASHEED WITH HOME CARE [facility]. PATIENT CONFIRMED TO BEGIN THERAPY 04/04. PATIENT INFORMED AND GIVEN DISCHARGE PLAN.
[2019-04-02] MEDS ORDERED: CYANOCOBALAMIN INJ 1,000 MCG/ML VIAL IM ONE (14:30)
[2019-04-02] MEDS ORDERED: GUAIFENESIN 600 MG TAB PO PRN (14:30)
[2019-04-02] MEDS ORDERED: GLATIRAMER (COPOLYMER-1) 20 MG SYR SQ SCH (14:30)
--- NOTE | 2019-04-02 14:55 | NUR ---
pt had vitamin b 12 shot at end of february refused shot at this time
[2019-04-02] MEDS ORDERED: CARBOXYMETHYLCELLULOSE SODIUM OU SCH (15:00)
[2019-04-02] MEDS: ARTIFICIAL TEARS (OPTH) 15 ML BTL OU SCH ×2 (15:00→21:49)
--- NOTE | 2019-04-02 15:31 | Operative Report ---
DATE OF PROCEDURE: 04/02/2019 SURGEON: Dann Gillis MD LADDERMAN: Eriberto Barboza PA-C. PREOPERATIVE DIAGNOSIS: Osteoarthritis, left knee. POSTOPERATIVE DIAGNOSIS: Osteoarthritis, left knee. PROCEDURE: Left total knee arthroplasty. INDICATIONS: The patient is a 63-year-old lady, who is status post a right total knee replacement at an outside facility. She has had progressive pain and limited motion in her left knee. Clinic exam and x-rays are consistent with grade 4 osteoarthritis. The findings and options have been discussed at length. She states she understands and wishes to proceed with a left total knee replacement. PROCEDURE IN DETAIL: The patient was brought to the operating room and given a spinal anesthetic. She received prophylactic antibiotics and tranexamic acid in the holding area. Her left lower extremity was prepped and draped in a sterile manner. A preoperative time-out was performed. The extremity was exsanguinated and a proximal tourniquet was inflated to 300 mmHg. An anterior approach with a medial parapatellar arthrotomy was performed. Soft tissue releases were performed to bring the knee up into flexion with the patella everted. Meniscal remnants, marginal osteophytes, and remnant of the anterior cruciate ligament were removed. Complete loss of articular cartilage in the medial compartment was noted. Throughout the case, a [employer] Persona knee system was used. An extramedullary cutting guide was used to resect the proximal tibia. The tibial baseplate was noted to be a size C. the central fin punch was impacted and attention was directed towards the distal femur. An intramedullary cutting guide was used to resect the distal femur in 5 degrees of valgus and rotation referencing off a combination of landmarks including Whitesides line, the epicondylar axis, and the posterior condyles. The femoral component was a size #6. The anterior and posterior cuts were made. The trial reduction was performed. A 10 mm medial congruent tibial insert provided appropriate soft tissue balancing in full extension and 90 degrees of flexion. The patella was resurfaced with a 29 mm patellar button. The thickness was checked before and after and was right around 21 mm. Patellar tracking was noted to be concentric. The trial implants were removed. A 100 mL premixed pericapsular SOCORRO injection was placed into the surrounding soft tissue. The wound was thoroughly irrigated with a shower tip pulsatile lavage. On numerous occasions throughout the case, a spray bottle of diluted polymyxin and vancomycin spray was used to lubricate the cuts and to spray the wound. The components were cemented into place using a single mix of Palacos cement preloaded with antibiotics. Care was taken to remove extravasated cement. The wound was further irrigated while the cement cured. 500 mg of vancomycin powder were then placed into the joint. The arthrotomy was closed with interrupted #1 Ethibond. The knee was put through flexion and extension to ensure a secure closure. The skin was closed with subcuticular Vicryl and marcia. A sterile Aquacel bandage was applied. The patient was extubated and transported to the recovery room in stable condition. Blood loss was minimal. All needle and sponge counts were correct. Dann Gillis MD DR/HIRAM /[id number]
[2019-04-02 16:40] VITALS: BP 117/56
[2019-04-02] MEDS ORDERED: ASPIRIN 325 MG TAB EC PO SCH (17:00)
[2019-04-02] MEDS: CELECOXIB 200 MG CAP PO SCH (17:20)
[2019-04-02] MEDS: VANCOMYCIN 1GM/NS 250 ML 250 ML IV SCH (18:19)
[2019-04-02] MEDS ORDERED: LIDOCAINE HCL 2% LOCAL 20 ML VIAL ONE (19:10)
[2019-04-02] MEDS ORDERED: BUPIVACAINE 0.25% 30ML SDV INJ ONE (19:10)
[2019-04-02 19:30] VITALS: BP 117/56
[2019-04-02] MEDS: BUDESONIDE/FORMOTEROL 160/4.5MCG INHALER INH SCH (19:45)
[2019-04-02 20:00] VITALS: BP 116/66
[2019-04-02] MEDS: NORTRIPTYLINE HCL 10 MG CAP PO SCH (21:00)
[2019-04-02] MEDS ORDERED: ZOLPIDEM TARTRATE 5 MG TAB PO PRN (21:00)
[2019-04-02] MEDS ORDERED: ACETAMINOPHEN 1300 MG PO SCH (22:00)
--- NOTE | 2019-04-02 22:54 | Consultation ---
DATE OF CONSULTATION: Internal Medicine Consultation HISTORY OF PRESENT ILLNESS: A 63 years old female, past medical history positive for asthma, gastroesophageal reflux disease, acquired hypothyroidism, and severe osteoarthritis of the left knee. She also underwent left total knee arthroplasty by Dr. Gillis. Internal Medicine consultation was requested by Dr. Gillis for management of her medical condition. REVIEW OF SYSTEMS: The patient is still sleepy after the anesthesia. She cannot give me any information. ALLERGIES: ALLERGIES ARE LISTED IN THE CHART. SHE IS ALLERGIC TO CEPHALOSPORIN AND METOCLOPRAMIDE. PAST MEDICAL HISTORY: Asthma, hypothyroidism, gastroesophageal reflux disease. SOCIAL HISTORY: She does not smoke. Does not drink. PHYSICAL EXAMINATION: VITAL SIGNS: Blood pressure 102/59, temperature 97.4, heart rate 83 per minute, respiratory rate 16 per minute, oxygen saturation 92%. HEART: Showed regular rhythm. Normal S1, S2 sound. LUNGS: Clear bilaterally. ABDOMEN: Soft. EXTREMITIES: the left knee. FINAL IMPRESSION: 1. History of asthma. 2. Gastroesophageal reflux disease. 3. hypothyroidism. 4. Severe arthritis of the knee, status post left total knee arthroplasty. PLAN OF TREATMENT: We are going to continue current medication regimen, which includes the following medications. She is on normal saline at 100 mL an hour, polymyxin sulfate once. She has vancomycin 1 g IV twice a day, Ambien 5 mg at night p.r.n. for sleep, aspirin 325 mg twice a day, Benadryl 12.5 mg IV or IM q.6 hours as needed for itching, betamethasone cream daily, Symbicort one inhalation twice a day, Celebrex 200 mg twice a day, Colace 100 mg twice a day as needed for constipation, Flonase 1 inhalation daily, Copaxone 40 mg , guaifenesin 200 mg twice daily as needed, levothyroxine 50 mcg daily, [place] 5/325 q.4 hours as needed for sphakrre-om-cpchyp pain, [place] 7.5/325 mg 1 tablet q.4 hours as needed for severe pain, nortriptyline 10 mg at bedtime, Protonix 40 mg daily, [place] daily, Toradol 30 mg IV q.6 hours as needed for moderate pain, Tylenol 1000 mg q.6 hours as needed for mild pain, Tylenol suppository 650 mg q.4 hours as needed for pain or elevated temperature. Carboxymethylcellulose 2 drops to each eye three times a day. Internal medicine consultation I am going to follow the case along with you. MD DIEGO Mata/HIRAM /[id number]
[2019-04-03] VITALS: BP 103/51
[2019-04-03] MEDS: ACETAMINOPHEN 1000 MG/100 ML IV SCH ×2 (00:26→05:12)
[2019-04-03] MEDS ORDERED: LEXAPRO10 MG PO (00:42)
[2019-04-03] MEDS ORDERED: ESCITALOPRAM OXALATE 10 MG TAB PO SCH (01:00)
[2019-04-03] MEDS: NORTRIPTYLINE HCL 10 MG CAP PO SCH (01:01)
[2019-04-03 04:00] VITALS: BP 97/61
[2019-04-03] MEDS: VANCOMYCIN 1GM/NS 250 ML 250 ML IV SCH (05:12)
[2019-04-03] MEDS: SODIUM CHLORIDE 0.9% 1000ML 1,000 ML IV SCH (05:12)
[2019-04-03 05:54] LABS: HEMATOCRIT 30.3 % (34.2-44.1); HEMOGLOBIN 9.7 g/dL (12.0-16.0)
[2019-04-03] MEDS ORDERED: LEVOTHYROXINE SODIUM 50 MCG TAB PO SCH (06:00)
[2019-04-03] MEDS ORDERED: FLUTICASONE PROPIONATE NASAL SPRAY NS SCH (06:00)
[2019-04-03] MEDS ORDERED: GLATIRAMER ACETATE 40 MG/ML SYRINGE SQ SCH (06:15)
--- NOTE | 2019-04-03 07:06 | NUR ---
Gustafson removed at 0700. Patient tolerated procedure well. Patient will use self catheter as she does at home.
--- NOTE | 2019-04-03 07:26 | NUR ---
Rcvd patient in report this am. Patient is awake in bed at this time. Therapy in room at this time No s/s of distress noted
[2019-04-03 08:09] VITALS: BP 109/58
[2019-04-03] MEDS: ARTIFICIAL TEARS (OPTH) 15 ML BTL OU SCH ×2 (08:16→15:00)
[2019-04-03] MEDS: ASPIRIN 325 MG TAB EC PO SCH ×2 (08:16→17:00)
[2019-04-03] MEDS: CELECOXIB 200 MG CAP PO SCH ×2 (08:17→17:00)
[2019-04-03 08:22] VITALS: BP 109/58
[2019-04-03] MEDS ORDERED: PANTOPRAZOLE SOD 40 MG TABEC PO SCH (09:00)
[2019-04-03] MEDS ORDERED: RIVASTIGMINE TRANSDERMAL 9.5MG/24HOURS PATCH TD SCH (09:00)
[2019-04-03] MEDS ORDERED: CHOLECALCIFEROL 1,000 UNIT TAB PO SCH (09:00)
[2019-04-03] MEDS ORDERED: BETAMETHASONE DIP AUG 0.05% CRM 15 GM TUBE TOP SCH (09:00)
[2019-04-03] MEDS ORDERED: NON-FORMULARY MEDICATION (Cholecalciferol (Vitamin D3) (Vitamin D3) 1 TAB) PO SCH (09:00)
[2019-04-03] MEDS ORDERED: RIVASTIGMINE TD SCH (09:00)
[2019-04-03] MEDS ORDERED: ACETAMINOPHEN 1000 MG/100 ML IV PRN (09:00)
[2019-04-03] MEDS ORDERED: SALINE 0.65% NAS SOLN 1 SPRAY BTL SCH (09:00)
[2019-04-03] MEDS ORDERED: LEVOTHYROXINE SODIUM 25 MCG TABLET PO SCH (09:00)
[2019-04-03] MEDS: BUDESONIDE/FORMOTEROL 160/4.5MCG INHALER INH SCH (09:05)
[2019-04-03] MEDS: HYDROCODONE/APAP 7.5MG-325MG 1 EA TAB PO PRN ×2 (09:27→17:00)
--- NOTE | 2019-04-03 10:12 | NUR ---
Patient is AAOx3. patient is post op left knee replacement. Dressing to left knee clean and dry. PRN pain meds given. Lung silva clear to auscultation. Bowel sounds present x4. passing gas at this time. Patient ambulated with walker and therapy this am.
--- NOTE | 2019-04-03 10:51 | Progress Note ---
DATE: Internal Medicine Progress Note SUBJECTIVE: The patient is doing well. No significant complaint. OBJECTIVE: VITAL SIGNS: Blood pressure 109/58, temperature 97.2, heart rate 70 per minute, respiratory rate is 20 per minute, and oxygen saturation 99%. EXTREMITIES: She had an incision on the left knee after left total knee replacement. LABORATORY DATA: On the BMP; sodium 137, potassium 3.7, chloride 101, CO2 29, BUN 11, creatinine 0.77, and glucose 86. On CBC; white count 5.74, hemoglobin 9.7, hematocrit 30.3, and platelet count 345,000. PT 12.4, INR is 0.98, and PTT 25.8. AST 26, ALT 33, total bilirubin 0.3. Alkaline phosphatase 89. FINAL IMPRESSION: 1. Severe osteoarthritis on the left knee, status post left total hip arthroplasty. 2. Hypothyroidism. 3. Gastroesophageal reflux disease. 4. History of asthma. 5. Vitamin D deficiency. 6. Short-term memory loss. 7. Constipation. PLAN OF TREATMENT: We are going to discontinue fluids because the patient . Continue Decker 1 tablet q.4 hours as needed. Continue Benadryl 12.5 mg q.6 hours as needed, Toradol 30 mg IV q.6 hours as needed, Celebrex 200 mg twice a day, Flonase 1 inhalation daily, Protonix 40 mg daily, citalopram 20 mg daily, Tylenol 650 mg q.4 hours as needed, Ambien 5 mg at night p.r.n. for sleep, aspirin 325 mg twice a day, Zofran 4 mg IV q.6 hours as needed, promethazine 12.5 mg IV q.6 hours as needed for vomiting, betamethasone daily, levothyroxine 50 mcg daily, cholecalciferol 5000 units daily, Exelon patch one patch daily, Colace 100 mg twice a day, Tylenol 1000 mg q.6 hours as needed, budesonide one inhalation twice a day, nortriptyline 10 mg at bedtime, and Artificial Tears three times a day. Dr. Gillis has seen the patient. She might be able to go home today with physical and occupation therapy. Follow up with me in a week. MD DIEGO Mata/HIRAM /[id number]
--- NOTE | 2019-04-03 11:00 | NUR ---
Patient voided at this time.
[2019-04-03] MEDS ORDERED: ENOXAPARIN SOD INJ 40 MG/0.4 ML SYR SC STA (11:09)
[2019-04-03 12:00] VITALS: BP 104/57
[2019-04-03] MEDS ORDERED: ONDANSETRON HCL 4 MG ORAL DISINTEGRATING TAB PO PRN (12:15)
[2019-04-03] MEDS ORDERED: ASPIRIN ENTERI325 MG PO (12:59)
[2019-04-03] MEDS ORDERED: LOVENOX60 MG/0.6 SC (13:07)
[2019-04-03] MEDS ORDERED: NORCO 7.5-3251 EACH PO (13:08)
[2019-04-03 16:36] VITALS: BP 108/57
--- NOTE | 2019-04-03 18:25 | NUR ---
Patient discharged home with written instructions, prescriptions and equipment. She verbalized understanding. IV dc'd earlier, cath intact and small dressing applied. took patient home in private vehicle in stable condition.
[2019-04-04] MEDS ORDERED: GLATIRAMER ACETATE 40 MG/ML SYRINGE SQ SCH ×2 (09:00)
== END 2019-04-03 18:30 | disposition home or self-care (01) ==
LOC: OR 05:27 → PACU V 09:01 → MED/SURG 09:59
PROVIDERS: ADMIT Specialist; ATTEND Specialist
DX: M17.12 Unilateral primary osteoarthritis, left knee (principal); K21.9 Gastro-esophageal reflux disease without esophagitis; J45.909 Unspecified asthma, uncomplicated; K29.70 Gastritis, unspecified, without bleeding; G35 Multiple sclerosis; Z96.651 Presence of right artificial knee joint; Z80.3 Family history of malignant neoplasm of breast; Z80.8 Family history of malignant neoplasm of other organs or systems; Z88.1 Allergy status to other antibiotic agents; Z88.8 Allergy status to other drugs, medicaments and biological substances; S82.54XD Nondisplaced fracture of medial malleolus of right tibia, subsequent encounter for closed fracture with routine healing; G47.33 Obstructive sleep apnea (adult) (pediatric); E78.5 Hyperlipidemia, unspecified; K76.0 Fatty (change of) liver, not elsewhere classified; E03.9 Hypothyroidism, unspecified; E55.9 Vitamin D deficiency, unspecified; K59.00 Constipation, unspecified; R41.3 Other amnesia
CPT/HCPCS: 27447; 36415 ×3; 73560; 80053; 82948 ×2; 85014; 85018; 85025; 85610; 85730; 86850; 86900; 86920; 97116; 97162; 97530 ×2; C1713; C1776; G0378 ×2; J0131 ×2; J0171; J1100; J1650; J1885 ×2; J2001; J2250; J2405; J2795; J3370 ×3; J7030 ×2; S0164

== ENCOUNTER → 2019-04-20 | Outpatient (CLI) | payer OTHER ==
[~2019-04-20] MED LIST changes: +ASPIRIN ENTERI325 MG PO; +BETAMETHASONE D15 GM TOP; +DICLOFENAC CREAM TOP; +IOPAMIDOL 370 MG/ML 200 ML INFUS..BTL INJ ONE; +LEXAPRO10 MG PO; +LIDOCAINE CREAM TOP; +LOVENOX60 MG/0.6 SC; +NORCO 7.5-3251 EACH PO; +SODIUM CHLORIDE 0.9% 50ML 50 ML ONE
[2019-04-20 09:28] LABS: BLOOD UREA NITROGEN 13 mg/dL (7-26); BUN/CREATININE RATIO 15 (6-25); CREATININE, SERUM 0.86 mg/dL (0.57-1.11); EST GLOMERULAR FILTRATION RATE > 60 ML/MIN (60-)
--- NOTE | 2019-04-20 10:30 | Diagnostic Imaging Report ---
EXAMINATION: CT scan of the chest with contrast. TECHNIQUE: Spiral CT images of the chest were performed from the lung apices to the level of the adrenal glands after the intravenous administration of 100 cc Isovue-370 Coronal and sagittal reformatted images were obtained. COMPARISON: Chest radiograph 03/15/2019 CLINICAL HISTORY:Cough, lung nodule, bronchiectasis DISCUSSION: LINES/TUBES: None. LUNGS AND AIRWAYS: Scattered foci of juxtapleural reticular and groundglass opacities in the inferior lingula and right middle lobe. Traction and cylindrical bronchiectasis predominantly affecting the medial segment of the right middle lobe, with less extensive changes involving the lingula and lateral segment of the right middle lobe. No airspace consolidation or gross mass lesion. No suspicious pulmonary nodules per clinical query. Trachea, mainstem bronchi, and central lobar and segmental bronchi are patent, without filling defects. PLEURA: No pneumothorax or pleural effusions. HEART AND MEDIASTINUM: Visualized portions of the thyroid gland appear normal. Pulmonary outflow tract is of normal caliber. No ectasia or aneurysmal dilatation of the thoracic aorta. Atherosclerotic calcifications of the left anterior descending coronary artery. No pericardial effusion. Patulous esophagus with concentric distal wall thickening for example on series 2 image 64. Small paraesophageal hiatal hernia containing the gastric fundus. LYMPH NODES: No axillary, hilar, or mediastinal lymphadenopathy. ABDOMEN: Visualized portions of the liver, gallbladder, spleen, pancreas, and adrenals are unremarkable. BONES AND SOFT TISSUES: No osseous destructive lesions. Degenerative disc changes of the lower cervical and thoracic spine. No focal soft tissue abnormalities. IMPRESSION: Right middle lobe, and, to a lesser extent lingular bronchiectasis, likely postinfectious, with associated groundglass and reticular inflammatory opacities. This pattern may be seen in recurrent atypical mycobacterial infection. No suspicious pulmonary nodule per clinical query. Patulous esophagus with concentric wall thickening, nonspecific though may be seen in the setting of esophagitis. Small paraesophageal hiatal hernia. Gastroenterology referral is suggested. Atherosclerotic calcification of the left anterior descending coronary artery. Signed by: Dr. Dann Ahn M.D. on 04/20/2019 10:27 AM
== END ==
LOC: CT 08:33
PROVIDERS: ATTEND Internal Medicine
DX: R91.8 Other nonspecific abnormal finding of lung field (principal)
CPT/HCPCS: 36415; 71260; 82565; 84520; Q9967

== ENCOUNTER 2019-05-25 13:54 | Outpatient (RCR) | payer OTHER ==
[~2019-05-25 13:54] MED LIST changes: -IOPAMIDOL 370 MG/ML 200 ML INFUS..BTL INJ ONE; -SODIUM CHLORIDE 0.9% 50ML 50 ML ONE
== END 2019-05-27 ==
LOC: PT 13:54
PROVIDERS: ATTEND Specialist
DX: Z96.652 Presence of left artificial knee joint (principal); Z47.1 Aftercare following joint replacement surgery; M25.662 Stiffness of left knee, not elsewhere classified; M62.81 Muscle weakness (generalized)

== ENCOUNTER → 2019-06-27 | Outpatient (RCR) | payer OTHER | LOC: PT 05-28 13:45 | PROVIDERS: ATTEND Specialist | DX: Z96.652 Presence of left artificial knee joint (principal); Z47.1 Aftercare following joint replacement surgery; M25.662 Stiffness of left knee, not elsewhere classified; M62.81 Muscle weakness (generalized) ==

== ENCOUNTER → 2020-10-27 | Outpatient (RCR) | payer BC | LOC: PT 10-21 14:16 | PROVIDERS: ATTEND Specialist | DX: M75.42 Impingement syndrome of left shoulder (principal); M25.512 Pain in left shoulder; M25.612 Stiffness of left shoulder, not elsewhere classified; M62.81 Muscle weakness (generalized) ==

== ENCOUNTER 2020-11-12 09:59 | Outpatient (RCR) | payer BC | END 2020-11-27 | LOC: PT 09:59 | PROVIDERS: ATTEND Specialist | DX: M75.42 Impingement syndrome of left shoulder (principal); M25.512 Pain in left shoulder; M25.612 Stiffness of left shoulder, not elsewhere classified; M75.92 Shoulder lesion, unspecified, left shoulder; M62.81 Muscle weakness (generalized) ==